=== PATIENT | male | born 1950 | race Caucasian/White ===

== ENCOUNTER → 2016-11-29 | Outpatient (CLI) | payer MEDICARE ==
[2016-11-29 12:49] LABS: HEMATOCRIT 42.7 % (37.9-51.0); HEMOGLOBIN 13.9 g/dL (13.5-17.0); MEAN CORPUSCULAR HEMOGLOBIN 28.8 pg (27.0-33.4); MEAN CORPUSCULAR HGB CONC 32.5 g/dL (32.0-36.0); MEAN CORPUSCULAR VOLUME 89 fl (80-97); RED BLOOD COUNT 4.82 10^6/uL (4.35-5.55); WHITE BLOOD COUNT 8.3 10^3/uL (4.0-10.5)
[2016-11-29 13:25] LABS: BLOOD UREA NITROGEN 15 mg/dL (7-20); CREATININE RESULT 0.84 mg/dL (0.52-1.25); LITHIUM 0.6 mEq/L (0.6-1.2)
[2016-11-29 13:56] LABS: THYROID STIMULATING HORMONE 1.38 uIU/mL (0.47-4.68)
== END ==
LOC: LAB 12:19
PROVIDERS: ATTEND Psychiatry & Neurology Psychiatry
DX: F31.9 Bipolar disorder, unspecified (principal)
CPT/HCPCS: 36415; 80178; 82565; 84439; 84443; 84520; 85027